=== PATIENT | male | born 1965 | race Two or more races ===

== ENCOUNTER 2024-02-20 20:55 | Inpatient (IN) | payer MEDICAID ==
[~2024-02-20] VITALS: Ht 177.8 cm; Wt 104.2 kg
[2024-02-20] MEDS ORDERED: OMEP1CAP PO (21:18)
[2024-02-20] MEDS ORDERED: METF-1203 PO (21:18)
[2024-02-20] MEDS ORDERED: PROP10TA10 PO (21:18)
[2024-02-20] MEDS ORDERED: SUCR1TAB PO (21:18)
[2024-02-20 21:28] LABS: BASOPHILS # (AUTO) 0.1 X10'3 (0-0.2); BASOPHILS % (AUTO) 1.2 % (0-1); EOSINOPHILS # (AUTO) 0.2 X10'3 (0-0.9); EOSINOPHILS % (AUTO) 3.1 % (0-6); HEMATOCRIT 25.3 % (42.0-52.0); HEMOGLOBIN 7.8 g/dl (14.0-17.9); LYMPHOCYTES % (AUTO) 17.1 % (21-51); MEAN CORPUSCULAR HEMOGLOBIN 22.7 PG (27.0-31.0); MEAN CORPUSCULAR HGB CONC 30.9 g/dL (33.0-36.5); MEAN CORPUSCULAR VOLUME 73.5 FL (78-98); MEAN PLATELET VOLUME 7.4 FL (7.4-10.4); MONOCYTES # (AUTO) 0.6 X10'3 (0-0.9); NEUTROPHILS # (AUTO) 3.9 X10'3 (1.8-7.7); NEUTROPHILS % (AUTO) 67.6 % (42-75); PLATELET COUNT 136 X10'3 (140-440); RED BLOOD COUNT 3.44 X10'6 (4.70-6.10); RED CELL DISTRIBUTION WIDTH 19.9 % (11.5-14.5); WHITE BLOOD COUNT 5.7 X10'3 (4.5-11.0)
[2024-02-20 21:41] LABS: ALBUMIN 2.7 G/DL (3.4-5.0); ANION GAP 4 (8-16); BILIRUBIN,TOTAL 3.4 MG/DL (0.1-1.0); BLOOD UREA NITROGEN 12 MG/DL (7-18); BUN/CREATININE RATIO 14.8 (10.0-20.0); CALCIUM 8.2 MG/DL (8.5-10.1); CHLORIDE 109 MMOL/L (99-107); CREATININE 0.81 MG/DL (0.60-1.10); GLUCOSE 107 MG/DL (70-104); POTASSIUM 4.4 MMOL/L (3.5-5.1); SODIUM 141 MMOL/L (135-145); TOTAL CARBON DIOXIDE 27.7 MMOL/L (24-32); TOTAL PROTEIN 6.7 G/DL (6.4-8.2); eCRCL 100 ML/MIN; eGFR > 90 ML/MIN
[2024-02-20 21:42] LABS: ALANINE AMINOTRANSFERASE 28 U/L (12-78); ALBUMIN/GLOBULIN RATIO 0.7 (1.1-1.5); ALKALINE PHOSPHATASE 185 IU/L (46-116); ASPARTATE AMINO TRANSFERASE 35 U/L (10-37); LIPASE 39 U/L (16-77)
[2024-02-20 22:06] LABS: BILIRUBIN,URINE NEGATIVE (Neg); CLARITY,URINE CLEAR (Clear); COLOR,URINE YELLOW (Yellow); GLUCOSE, URINE NEGATIVE (Neg); KETONES,URINE NEGATIVE (Neg); LEUKOCYTE ESTERASE ,URINE NEGATIVE (Neg); NITRITES, URINE NEGATIVE (Neg); OCCULT BLOOD,URINE NEGATIVE (Neg); PH,URINE 8.5 (4.8-8.0); PROTEIN,URINE NEGATIVE (Neg); UROBILINOGEN,URINE 0.2 E.U/dL (0.2-1.0)
[2024-02-20 22:08] LABS: UA COLLECTION TYPE URINAL
[2024-02-20 22:19] LABS: ANISOCYTOSIS 2+; HYPOCHROMASIA 1+; MICROCYTOSIS 1+; PLATELET ESTIMATE DECREASED; POLYCHROMASIA FEW; ROULEAUX 1+
[2024-02-20 23:30] LABS: APTT 24 SECONDS (22-32); PROTHROMBIN TIME 11.1 SECONDS (9.0-12.0)
[2024-02-20 23:39] LABS: BASOPHILS % (AUTO) 0.6 % (0-1); EOSINOPHILS # (AUTO) 0.2 X10'3 (0-0.9); EOSINOPHILS % (AUTO) 3.9 % (0-6); HEMATOCRIT 23.4 % (42.0-52.0); HEMOGLOBIN 7.3 g/dl (14.0-17.9); LYMPHOCYTES # (AUTO) 1.1 X10'3 (1.1-4.8); LYMPHOCYTES % (AUTO) 18.9 % (21-51); MEAN CORPUSCULAR HGB CONC 31.3 g/dL (33.0-36.5); MEAN CORPUSCULAR VOLUME 73.4 FL (78-98); MEAN PLATELET VOLUME 7.4 FL (7.4-10.4); MONOCYTES # (AUTO) 0.7 X10'3 (0-0.9); MONOCYTES % (AUTO) 12.8 % (2-12); NEUTROPHILS # (AUTO) 3.7 X10'3 (1.8-7.7); NEUTROPHILS % (AUTO) 63.8 % (42-75); PLATELET COUNT 125 X10'3 (140-440); RED BLOOD COUNT 3.18 X10'6 (4.70-6.10); RED CELL DISTRIBUTION WIDTH 19.9 % (11.5-14.5); WHITE BLOOD COUNT 5.8 X10'3 (4.5-11.0)
[2024-02-21] VITALS (8 sets, daily range): BP systolic 115–140; BP diastolic 63–77; PULSE 65–74; RESP 14–17; TEMP 98.3–98.8; O2SAT 93–99
[2024-02-21] MEDS ORDERED: mag hydrox/Alum hydrox/simeth 30ml oral suspension PO PRN (01:25)
[2024-02-21] MEDS ORDERED: magnesium hydroxide 30ml (MOM) UD suspension PO PRN (01:25)
[2024-02-21] MEDS ORDERED: potassium Cl 40MEQ/1/2NS 520ml 520 ML IV PRN (01:25)
[2024-02-21] MEDS ORDERED: acetaminophen 325mg tablet PO PRN (01:25)
[2024-02-21] MEDS ORDERED: potassium Cl 20 mEq SR tablet PO PRN ×2 (01:25)
[2024-02-21] MEDS ORDERED: ondansetron/PF 4mg/2ml inj IV PRN (01:25)
[2024-02-21] MEDS ORDERED: magnesium Cl slow-release 64mg tablet PO PRN (01:25)
[2024-02-21] MEDS ORDERED: magnesium sulf-water 2g/50mL 50 ML IV PRN (01:25)
[2024-02-21] MEDS ORDERED: magnesium sulf-water 4G/100mL 100 ML IV PRN (01:25)
[2024-02-21 02:24] LABS: HEMOGLOBIN A1C 6.2 % (4.5-6.2)
[2024-02-21] MEDS ORDERED: glucagon, human recombinant 1mg kit SUBCUT PRN (02:35)
[2024-02-21] MEDS ORDERED: DEXTROSE 15 GM of carb/4 tabs (each vial/BOTTLE has 4 tablets) PO PRN ×2 (02:35)
[2024-02-21] MEDS ORDERED: dextrose 50%-water 50ml dispensing syringe IV PRN ×2 (02:35)
[2024-02-21 02:40] LABS: BILIRUBIN,DIRECT 0.5 MG/DL (0-0.3); MAGNESIUM 1.7 MG/DL (1.5-2.4)
[2024-02-21] MEDS: pantoprazole 40MG/NS 100ML BAG 100 ML IV SCH (03:58)
[2024-02-21] MEDS: octreotide inj. 500 MCG in normal saline 100ml IV soln 97.5 ML IV SCH (03:58)
[2024-02-21] MEDS: INSULIN LISPRO 100 UNIT/ML INSULN.PEN MULTI-DOSE SQ SCH (07:00)
[2024-02-21] MEDS: K and/or MAG REPLACEMENT MC SCH (08:00)
[2024-02-21] MEDS: docusate sod 100mg capsule PO SCH (08:00)
[2024-02-21] MEDS ORDERED: octreotide inj. 1,250 MCG in normal saline 250ml IV soln 243.75 ML IV SCH (08:10)
[2024-02-21 08:21] LABS: HEMATOCRIT 25.3 % (42.0-52.0); HEMOGLOBIN 7.9 g/dl (14.0-17.9); MEAN CORPUSCULAR HGB CONC 31.1 g/dL (33.0-36.5); MEAN CORPUSCULAR VOLUME 73.9 FL (78-98); MEAN PLATELET VOLUME 7.8 FL (7.4-10.4); PLATELET COUNT 134 X10'3 (140-440); RED BLOOD COUNT 3.43 X10'6 (4.70-6.10); RED CELL DISTRIBUTION WIDTH 19.8 % (11.5-14.5); WHITE BLOOD COUNT 4.9 X10'3 (4.5-11.0)
[2024-02-21] MEDS: CefTRIAXone/D5W-Rocephin 1gm 50 ML IV SCH (12:57)
[2024-02-21 13:17] LABS: HEMATOCRIT 24.2 % (42.0-52.0); HEMOGLOBIN 7.6 g/dl (14.0-17.9); MEAN CORPUSCULAR HEMOGLOBIN 22.9 PG (27.0-31.0); MEAN CORPUSCULAR HGB CONC 31.4 g/dL (33.0-36.5); MEAN CORPUSCULAR VOLUME 72.8 FL (78-98); MEAN PLATELET VOLUME 7.7 FL (7.4-10.4); PLATELET COUNT 136 X10'3 (140-440); RED BLOOD COUNT 3.32 X10'6 (4.70-6.10); RED CELL DISTRIBUTION WIDTH 19.9 % (11.5-14.5); WHITE BLOOD COUNT 4.3 X10'3 (4.5-11.0)
[2024-02-21] MEDS ORDERED: MIDAZolam 1 MG/ML 5ML VIAL ONE (16:06)
[2024-02-21] MEDS ORDERED: LIDOcaine 2% Viscous 15ml cup ONE (16:06)
[2024-02-21] MEDS ORDERED: fentaNYL/PF 50MCG/1 ML 2ML syringe ONE (16:06)
[2024-02-21] MEDS ORDERED: flumazenil 0.1 mg/ml inj. 10mL vial IV ONE ×2 (16:11→16:13)
[2024-02-21] MEDS ORDERED: naloxone 0.4 mg/ml inj ONE (16:11)
[2024-02-22] MEDS: morphine 4 MG/ML inj SYRINge IV PRN (02:41)
[2024-02-22 06:10] LABS: BASOPHILS # (AUTO) 0.1 X10'3 (0-0.2); BASOPHILS % (AUTO) 1.4 % (0-1); EOSINOPHILS # (AUTO) 0.2 X10'3 (0-0.9); EOSINOPHILS % (AUTO) 6.3 % (0-6); HEMATOCRIT 24.2 % (42.0-52.0); HEMOGLOBIN 7.5 g/dl (14.0-17.9); LYMPHOCYTES % (AUTO) 25.1 % (21-51); MEAN CORPUSCULAR HEMOGLOBIN 22.7 PG (27.0-31.0); MEAN CORPUSCULAR HGB CONC 30.9 g/dL (33.0-36.5); MEAN CORPUSCULAR VOLUME 73.4 FL (78-98); MONOCYTES # (AUTO) 0.5 X10'3 (0-0.9); MONOCYTES % (AUTO) 11.9 % (2-12); NEUTROPHILS # (AUTO) 2.2 X10'3 (1.8-7.7); NEUTROPHILS % (AUTO) 55.3 % (42-75); PLATELET COUNT 127 X10'3 (140-440); RED BLOOD COUNT 3.29 X10'6 (4.70-6.10); WHITE BLOOD COUNT 3.9 X10'3 (4.5-11.0)
[2024-02-22 06:19] LABS: INR 1.1 INR; PROTHROMBIN TIME 11.5 SECONDS (9.0-12.0)
[2024-02-22 06:21] LABS: ALANINE AMINOTRANSFERASE 28 U/L (12-78); ALBUMIN 2.6 G/DL (3.4-5.0); ALBUMIN/GLOBULIN RATIO 0.7 (1.1-1.5); ALKALINE PHOSPHATASE 171 IU/L (46-116); ANION GAP 7 (8-16); ASPARTATE AMINO TRANSFERASE 35 U/L (10-37); BILIRUBIN,TOTAL 1.6 MG/DL (0.1-1.0); BLOOD UREA NITROGEN 9 MG/DL (7-18); BUN/CREATININE RATIO 10.7 (10.0-20.0); CALCIUM 7.9 MG/DL (8.5-10.1); CHLORIDE 108 MMOL/L (99-107); CREATININE 0.84 MG/DL (0.60-1.10); GLUCOSE 109 MG/DL (70-104); SODIUM 141 MMOL/L (135-145); TOTAL CARBON DIOXIDE 26.1 MMOL/L (24-32); TOTAL PROTEIN 6.5 G/DL (6.4-8.2); eCRCL 97 ML/MIN; eGFR > 90 ML/MIN
[2024-02-22] MEDS ORDERED: heparin, porcine 5000 units/ml vial SQ SCH (20:00)
[2024-02-22 21:23] VITALS: BP 120/72; PULSE 66; RESP 16; TEMP 97.9; O2SAT 96
[2024-02-23 03:20] VITALS: BP 128/74; PULSE 69; RESP 16; TEMP 98.3; O2SAT 97
[2024-02-23 05:35] LABS: BASOPHILS % (AUTO) 1.1 % (0-1); EOSINOPHILS # (AUTO) 0.2 X10'3 (0-0.9); EOSINOPHILS % (AUTO) 4.5 % (0-6); HEMATOCRIT 25.2 % (42.0-52.0); HEMOGLOBIN 7.7 g/dl (14.0-17.9); LYMPHOCYTES # (AUTO) 1.1 X10'3 (1.1-4.8); MEAN CORPUSCULAR HEMOGLOBIN 22.5 PG (27.0-31.0); MEAN CORPUSCULAR HGB CONC 30.5 g/dL (33.0-36.5); MEAN CORPUSCULAR VOLUME 73.8 FL (78-98); MEAN PLATELET VOLUME 7.5 FL (7.4-10.4); MONOCYTES # (AUTO) 0.5 X10'3 (0-0.9); MONOCYTES % (AUTO) 10.8 % (2-12); NEUTROPHILS # (AUTO) 2.4 X10'3 (1.8-7.7); NEUTROPHILS % (AUTO) 57.6 % (42-75); PLATELET COUNT 136 X10'3 (140-440); RED BLOOD COUNT 3.41 X10'6 (4.70-6.10); WHITE BLOOD COUNT 4.2 X10'3 (4.5-11.0)
[2024-02-23 05:46] LABS: INR 1.1 INR; PROTHROMBIN TIME 11.7 SECONDS (9.0-12.0)
[2024-02-23 05:54] LABS: ALANINE AMINOTRANSFERASE 25 U/L (12-78); ALBUMIN 2.6 G/DL (3.4-5.0); ALBUMIN/GLOBULIN RATIO 0.7 (1.1-1.5); ALKALINE PHOSPHATASE 161 IU/L (46-116); ANION GAP 7 (8-16); ASPARTATE AMINO TRANSFERASE 29 U/L (10-37); BILIRUBIN,TOTAL 1.5 MG/DL (0.1-1.0); BLOOD UREA NITROGEN 8 MG/DL (7-18); BUN/CREATININE RATIO 9.2 (10.0-20.0); CALCIUM 7.9 MG/DL (8.5-10.1); CHLORIDE 109 MMOL/L (99-107); CREATININE 0.87 MG/DL (0.60-1.10); GLUCOSE 116 MG/DL (70-104); POTASSIUM 3.7 MMOL/L (3.5-5.1); SODIUM 142 MMOL/L (135-145); TOTAL CARBON DIOXIDE 25.6 MMOL/L (24-32); TOTAL PROTEIN 6.6 G/DL (6.4-8.2); eCRCL 93 ML/MIN; eGFR 90 ML/MIN
[2024-02-23 06:00] VITALS: BP 112/65; PULSE 61; RESP 16; TEMP 97.4; O2SAT 94
[2024-02-23 10:00] VITALS: BP 121/75; PULSE 64; RESP 18; TEMP 98.5; O2SAT 97
[2024-02-23] MEDS ORDERED: PANT-47 PO (12:29)
[2024-02-23] MEDS ORDERED: sucralfate 1 gm tablet PO SCH (17:00)
[2024-02-23] MEDS ORDERED: metFORMIN 500mg tablet PO SCH (20:00)
[2024-02-23] MEDS ORDERED: propranolol 10mg tablet PO SCH (20:00)
== END 2024-02-23 16:30 | disposition home or self-care (01) ==
LOC: ER 20:56 → UNDOADMIN 02-21 01:33 → ED HOLD 02-21 01:33 → EDBEDREQ 02-21 02:24 → ED HOLD 02-21 03:00 → ORTHO 4S 02-21 03:00
PROVIDERS: ADMIT Student in an Organized Health Care Education/Training Program; ATTEND Family Medicine
PROC: 0DB78ZX Excision of Stomach, Pylorus, Via Natural or Artificial Opening Endoscopic, Diagnostic (ICD-10-PCS; principal; 2024-02-21)
PROC: 06L38CZ Occlusion of Esophageal Vein with Extraluminal Device, Via Natural or Artificial Opening Endoscopic (ICD-10-PCS; 2024-02-21)
DX: K74.60 Unspecified cirrhosis of liver (principal); U07.1 COVID-19; I85.11 Secondary esophageal varices with bleeding; E72.20 Disorder of urea cycle metabolism, unspecified; R18.8 Other ascites; D64.9 Anemia, unspecified; E11.9 Type 2 diabetes mellitus without complications; K31.89 Other diseases of stomach and duodenum; K80.20 Calculus of gallbladder without cholecystitis without obstruction; Z79.84 Long term (current) use of oral hypoglycemic drugs; Z79.899 Other long term (current) drug therapy
CPT/HCPCS: 36415; 43239; 43244; 76700; 80053; 81003; 82140; 82248; 82948; 83036; 83605; 83690; 83735; 84132; 84145; 85008; 85025; 85027; 85610; 85730; 86885; 86900; 86901; 87040; 87081; 93005; 99152; 99291; A4620; G0378; J0696; J1815; J2250; J2270; J2310; J2354; J2470; J3010; J3490; J7030

== ENCOUNTER 2024-05-14 16:05 | Inpatient (IN) | payer MEDICAID ==
[~2024-05-14] VITALS: Ht 165.1 cm; Wt 104.2 kg
[~2024-05-14 16:05] MED LIST: METF-1203 PO; PANT-47 PO; PROP10TA10 PO; SUCR1TAB PO
[2024-05-14 17:10] LABS: BASOPHILS # (AUTO) 0.1 X10'3 (0-0.2); BASOPHILS % (AUTO) 1.7 % (0-1); EOSINOPHILS # (AUTO) 0.1 X10'3 (0-0.9); LYMPHOCYTES % (AUTO) 31.3 % (21-51); MEAN CORPUSCULAR HEMOGLOBIN 19.9 PG (27.0-31.0); MEAN CORPUSCULAR HGB CONC 28.8 g/dL (33.0-36.5); MEAN CORPUSCULAR VOLUME 69.1 FL (78-98); MEAN PLATELET VOLUME 8.2 FL (7.4-10.4); MONOCYTES # (AUTO) 0.4 X10'3 (0-0.9); MONOCYTES % (AUTO) 12.3 % (2-12); NEUTROPHILS # (AUTO) 1.6 X10'3 (1.8-7.7); NEUTROPHILS % (AUTO) 50.7 % (42-75); PLATELET COUNT 123 X10'3 (140-440); RED BLOOD COUNT 2.82 X10'6 (4.70-6.10); RED CELL DISTRIBUTION WIDTH 20.2 % (11.5-14.5); WHITE BLOOD COUNT 3.1 X10'3 (4.5-11.0)
[2024-05-14 17:12] LABS: HEMATOCRIT 19.5 % (42.0-52.0); HEMOGLOBIN 5.6 g/dl (14.0-17.9)
[2024-05-14 17:25] LABS: ALANINE AMINOTRANSFERASE 26 U/L (12-78); ALBUMIN/GLOBULIN RATIO 0.8 (1.1-1.5); ALKALINE PHOSPHATASE 159 IU/L (46-116); ANION GAP 8 (8-16); ASPARTATE AMINO TRANSFERASE 26 U/L (10-37); BILIRUBIN,TOTAL 1.6 MG/DL (0.1-1.0); BLOOD UREA NITROGEN 7 MG/DL (7-18); BUN/CREATININE RATIO 8.6 (10.0-20.0); CALCIUM 8.1 MG/DL (8.5-10.1); CHLORIDE 110 MMOL/L (99-107); CREATININE 0.81 MG/DL (0.60-1.10); GLUCOSE 94 MG/DL (70-104); LIPASE 37 U/L (16-77); SODIUM 142 MMOL/L (135-145); TOTAL CARBON DIOXIDE 24.2 MMOL/L (24-32); eCRCL 84 ML/MIN; eGFR > 90 ML/MIN
[2024-05-14 17:28] LABS: ANISOCYTOSIS 3+; MICROCYTOSIS 2+; PLATELET ESTIMATE DECREASED
[2024-05-14 17:29] LABS: ACANTHOCYTES FEW; ELLIPTOCYTES FEW; HYPOCHROMASIA 3+; POLYCHROMASIA FEW; STOMATOCYTES FEW; TEAR DROP CELLS FEW
[2024-05-14] MEDS ORDERED: ondansetron/PF 4mg/2ml inj IV PRN (19:55)
[2024-05-14] MEDS ORDERED: potassium Cl 20 mEq SR tablet PO PRN ×2 (19:55)
[2024-05-14] MEDS ORDERED: magnesium sulf-water 2g/50mL 50 ML IV PRN (19:55)
[2024-05-14] MEDS ORDERED: magnesium sulf-water 4G/100mL 100 ML IV PRN (19:55)
[2024-05-14] MEDS ORDERED: potassium Cl 40MEQ/1/2NS 520ml 520 ML IV PRN (19:55)
[2024-05-14] MEDS ORDERED: magnesium Cl slow-release 64mg tablet PO PRN (19:55)
[2024-05-14] MEDS ORDERED: mag hydrox/Alum hydrox/simeth 30ml oral suspension PO PRN (19:55)
[2024-05-14] MEDS ORDERED: acetaminophen 325mg tablet PO PRN (19:55)
[2024-05-14] MEDS ORDERED: magnesium hydroxide 30ml (MOM) UD suspension PO PRN (19:55)
[2024-05-14] MEDS: docusate sod 100mg capsule PO SCH (20:00)
[2024-05-14] MEDS: K and/or MAG REPLACEMENT MC SCH (20:00)
[2024-05-14] MEDS ORDERED: dextrose 50%-water 50ml dispensing syringe IV PRN ×2 (20:05)
[2024-05-14] MEDS ORDERED: glucagon, human recombinant 1mg kit SUBCUT PRN (20:05)
[2024-05-14] MEDS ORDERED: DEXTROSE 15 GM of carb/4 tabs (each vial/BOTTLE has 4 tablets) PO PRN ×2 (20:05)
[2024-05-14 20:23] LABS: % IRON SATURATION 3 % (11-46); IRON 16 UG/DL (53-167); TOTAL IRON BINDING CAPACITY 458 UG/DL (259-388)
[2024-05-14 20:36] LABS: FERRITIN 6 NG/ML (26-388)
[2024-05-14] MEDS: INSULIN LISPRO 100 UNIT/ML INSULN.PEN MULTI-DOSE SQ SCH (21:00)
[2024-05-14] MEDS: insulin glargine (Lantus) pen - multi-dose SQ SCH (21:00)
[2024-05-14 21:15] VITALS: BP 124/65; PULSE 68; RESP 16; TEMP 98.6
[2024-05-14 21:26] LABS: MEAN CORPUSCULAR HEMOGLOBIN 19.7 PG (27.0-31.0); MEAN CORPUSCULAR HGB CONC 28.5 g/dL (33.0-36.5); MEAN CORPUSCULAR VOLUME 69.2 FL (78-98); MEAN PLATELET VOLUME 8.6 FL (7.4-10.4); PLATELET COUNT 121 X10'3 (140-440); RED BLOOD COUNT 2.71 X10'6 (4.70-6.10); RED CELL DISTRIBUTION WIDTH 20.3 % (11.5-14.5); WHITE BLOOD COUNT 3.3 X10'3 (4.5-11.0)
[2024-05-14 21:28] LABS: HEMATOCRIT 18.7 % (42.0-52.0); HEMOGLOBIN 5.3 g/dl (14.0-17.9)
[2024-05-14 21:30] VITALS: BP 128/61; PULSE 74; RESP 16; TEMP 98.8
[2024-05-14] MEDS: sucralfate 1 gm tablet PO SCH (21:31)
[2024-05-14] MEDS: pantoprazole 40MG/NS 100ML BAG 100 ML IV SCH (21:43)
[2024-05-14 21:45] VITALS: BP 128/64; PULSE 71; RESP 16; TEMP 98.8
[2024-05-14 23:55] VITALS: BP 123/68; PULSE 67; RESP 13; TEMP 97.5
[2024-05-14 23:59] VITALS: BP 120/67; PULSE 71; RESP 14; TEMP 97.5
[2024-05-15] VITALS (23 sets, daily range): BP systolic 110–160; BP diastolic 52–96; PULSE 59–68; RESP 11–19; TEMP 97.5–98.5; O2SAT 97–100
[2024-05-15] MEDS: pantoprazole 40MG/NS 100ML BAG 100 ML IV SCH (02:50)
[2024-05-15] MEDS ORDERED: acetaminophen 325mg tablet PO PRN (03:10)
[2024-05-15 05:57] LABS: BILIRUBIN,URINE NEGATIVE (Neg); CLARITY,URINE CLEAR (Clear); COLOR,URINE YELLOW (Yellow); GLUCOSE, URINE NEGATIVE (Neg); KETONES,URINE TRACE mg/dl (Neg); LEUKOCYTE ESTERASE ,URINE NEGATIVE (Neg); NITRITES, URINE NEGATIVE (Neg); OCCULT BLOOD,URINE NEGATIVE (Neg); PROTEIN,URINE NEGATIVE (Neg)
[2024-05-15 06:02] LABS: UA COLLECTION TYPE URINAL
[2024-05-15 08:00] LABS: EOSINOPHILS # (AUTO) 0.1 X10'3 (0-0.9); HEMATOCRIT 22.2 % (42.0-52.0); LYMPHOCYTES # (AUTO) 0.7 X10'3 (1.1-4.8); LYMPHOCYTES % (AUTO) 22.3 % (21-51); MEAN CORPUSCULAR HEMOGLOBIN 22.5 PG (27.0-31.0); MEAN CORPUSCULAR HGB CONC 30.9 g/dL (33.0-36.5); MEAN CORPUSCULAR VOLUME 72.7 FL (78-98); MEAN PLATELET VOLUME 8.2 FL (7.4-10.4); MONOCYTES # (AUTO) 0.3 X10'3 (0-0.9); MONOCYTES % (AUTO) 9.9 % (2-12); NEUTROPHILS % (AUTO) 63.8 % (42-75); PLATELET COUNT 108 X10'3 (140-440); RED BLOOD COUNT 3.05 X10'6 (4.70-6.10); WHITE BLOOD COUNT 3.1 X10'3 (4.5-11.0)
[2024-05-15] MEDS ORDERED: pantoprazole 40mg Tablet.DR PO SCH (08:00)
[2024-05-15 08:10] LABS: HEMOGLOBIN 6.9 g/dl (14.0-17.9)
[2024-05-15] MEDS: propranolol 10mg tablet PO SCH (08:34)
[2024-05-15 08:44] LABS: ALANINE AMINOTRANSFERASE 21 U/L (12-78); ALBUMIN 2.7 G/DL (3.4-5.0); ALBUMIN/GLOBULIN RATIO 0.7 (1.1-1.5); ALKALINE PHOSPHATASE 140 IU/L (46-116); ANION GAP 8 (8-16); ASPARTATE AMINO TRANSFERASE 31 U/L (10-37); BILIRUBIN,TOTAL 3.6 MG/DL (0.1-1.0); BLOOD UREA NITROGEN 6 MG/DL (7-18); BUN/CREATININE RATIO 7.6 (10.0-20.0); CALCIUM 7.7 MG/DL (8.5-10.1); CHLORIDE 107 MMOL/L (99-107); CREATININE 0.79 MG/DL (0.60-1.10); GLUCOSE 98 MG/DL (70-104); MAGNESIUM 1.7 MG/DL (1.5-2.4); POTASSIUM 3.9 MMOL/L (3.5-5.1); SODIUM 140 MMOL/L (135-145); TOTAL CARBON DIOXIDE 24.9 MMOL/L (24-32); TOTAL PROTEIN 6.4 G/DL (6.4-8.2); eCRCL 87 ML/MIN; eGFR > 90 ML/MIN
[2024-05-15] MEDS: INSULIN LISPRO 100 UNIT/ML INSULN.PEN MULTI-DOSE SQ SCH (09:00)
[2024-05-15] MEDS ORDERED: LIDOcaine 2% Viscous 15ml cup ONE (13:05)
[2024-05-15] MEDS ORDERED: diphenhydrAMINE 50 mg/ml inj ONE (13:27)
[2024-05-15] MEDS ORDERED: fentaNYL/PF 50MCG/1 ML 2ML syringe ONE (13:27)
[2024-05-15] MEDS ORDERED: MIDAZolam 1 MG/ML 5ML VIAL ONE (13:27)
[2024-05-15] MEDS ORDERED: simethicone 40mg/0.6ml oral drops 30ml ONE (13:50)
[2024-05-15 15:24] LABS: HEMATOCRIT 23.5 % (42.0-52.0); MEAN CORPUSCULAR HEMOGLOBIN 21.6 PG (27.0-31.0); MEAN CORPUSCULAR HGB CONC 29.7 g/dL (33.0-36.5); MEAN CORPUSCULAR VOLUME 72.7 FL (78-98); MEAN PLATELET VOLUME 8.3 FL (7.4-10.4); PLATELET COUNT 102 X10'3 (140-440); RED BLOOD COUNT 3.24 X10'6 (4.70-6.10); RED CELL DISTRIBUTION WIDTH 22.7 % (11.5-14.5); WHITE BLOOD COUNT 3.3 X10'3 (4.5-11.0)
[2024-05-15] MEDS: PEG 3350/Na sulf,bicarb,Cl/KCl oral sol 4 liter bottle PO ONE (17:00)
[2024-05-16] VITALS (18 sets, daily range): BP systolic 90–144; BP diastolic 51–79; PULSE 54–68; RESP 9–18; TEMP 97.6–98.8; O2SAT 96–99
[2024-05-16 04:59] LABS: OCCULT BLOOD STOOL NEGATIVE (Neg)
[2024-05-16 06:31] LABS: BASOPHILS # (AUTO) 0.1 X10'3 (0-0.2); BASOPHILS % (AUTO) 1.7 % (0-1); EOSINOPHILS # (AUTO) 0.2 X10'3 (0-0.9); EOSINOPHILS % (AUTO) 5.3 % (0-6); HEMATOCRIT 25.8 % (42.0-52.0); HEMOGLOBIN 8.1 g/dl (14.0-17.9); LYMPHOCYTES # (AUTO) 0.8 X10'3 (1.1-4.8); LYMPHOCYTES % (AUTO) 25.5 % (21-51); MEAN CORPUSCULAR HGB CONC 31.2 g/dL (33.0-36.5); MEAN CORPUSCULAR VOLUME 73.9 FL (78-98); MEAN PLATELET VOLUME 8.6 FL (7.4-10.4); MONOCYTES # (AUTO) 0.3 X10'3 (0-0.9); MONOCYTES % (AUTO) 11.4 % (2-12); NEUTROPHILS # (AUTO) 1.7 X10'3 (1.8-7.7); NEUTROPHILS % (AUTO) 56.1 % (42-75); PLATELET COUNT 106 X10'3 (140-440); RED CELL DISTRIBUTION WIDTH 23.5 % (11.5-14.5)
[2024-05-16 06:39] LABS: INR 1.2 INR; PROTHROMBIN TIME 12.5 SECONDS (9.0-12.0)
[2024-05-16 06:42] LABS: ALANINE AMINOTRANSFERASE 20 U/L (12-78); ALBUMIN 2.7 G/DL (3.4-5.0); ALBUMIN/GLOBULIN RATIO 0.7 (1.1-1.5); ALKALINE PHOSPHATASE 146 IU/L (46-116); ANION GAP 8 (8-16); ASPARTATE AMINO TRANSFERASE 26 U/L (10-37); BILIRUBIN,TOTAL 3.5 MG/DL (0.1-1.0); BLOOD UREA NITROGEN 6 MG/DL (7-18); BUN/CREATININE RATIO 7.8 (10.0-20.0); CALCIUM 8.3 MG/DL (8.5-10.1); CHLORIDE 109 MMOL/L (99-107); CREATININE 0.77 MG/DL (0.60-1.10); GLUCOSE 92 MG/DL (70-104); MAGNESIUM 1.8 MG/DL (1.5-2.4); POTASSIUM 3.7 MMOL/L (3.5-5.1); SODIUM 141 MMOL/L (135-145); TOTAL CARBON DIOXIDE 24.3 MMOL/L (24-32); TOTAL PROTEIN 6.4 G/DL (6.4-8.2); eCRCL 89 ML/MIN; eGFR > 90 ML/MIN
[2024-05-16 08:19] LABS: NUCLEATED RED BLOOD CELLS 1 /100WBC (0-0); TOTAL CELLS COUNTED 100
[2024-05-16 08:20] LABS: HYPOCHROMASIA 1+; MICROCYTOSIS 1+; PLATELET ESTIMATE DECREASED
[2024-05-16 08:21] LABS: SCHISTOCYTES FE W; STOMATOCYTES FEW
[2024-05-16] MEDS ORDERED: LIDOcaine 1%/PF 5ML 10 MG/ML VIAL ONE (12:35)
[2024-05-16] MEDS ORDERED: propofol inj 20 ML IV ONE ×2 (12:37→12:41)
[2024-05-17 01:39] VITALS: BP 102/59; PULSE 57; RESP 14; TEMP 98.2; O2SAT 97
[2024-05-17 05:23] LABS: HBSAG SCREEN Negative (Negative); HEPATITIS C VIRUS ANTIBODY Non Reactive (Non Reactive)
[2024-05-17 06:00] VITALS: BP 113/58; PULSE 61; RESP 13; TEMP 98.4; O2SAT 98
[2024-05-17 06:50] LABS: BASOPHILS % (AUTO) 1.1 % (0-1); EOSINOPHILS # (AUTO) 0.2 X10'3 (0-0.9); EOSINOPHILS % (AUTO) 5.2 % (0-6); HEMATOCRIT 25.6 % (42.0-52.0); HEMOGLOBIN 7.9 g/dl (14.0-17.9); LYMPHOCYTES # (AUTO) 0.8 X10'3 (1.1-4.8); MEAN CORPUSCULAR HEMOGLOBIN 23.3 PG (27.0-31.0); MEAN CORPUSCULAR HGB CONC 31.1 g/dL (33.0-36.5); MEAN CORPUSCULAR VOLUME 74.9 FL (78-98); MEAN PLATELET VOLUME 8.3 FL (7.4-10.4); MONOCYTES # (AUTO) 0.4 X10'3 (0-0.9); MONOCYTES % (AUTO) 12.6 % (2-12); NEUTROPHILS # (AUTO) 1.7 X10'3 (1.8-7.7); NEUTROPHILS % (AUTO) 55.1 % (42-75); PLATELET COUNT 101 X10'3 (140-440); RED BLOOD COUNT 3.41 X10'6 (4.70-6.10); RED CELL DISTRIBUTION WIDTH 23.6 % (11.5-14.5)
[2024-05-17 06:59] LABS: ALANINE AMINOTRANSFERASE 18 U/L (12-78); ALBUMIN 2.7 G/DL (3.4-5.0); ALBUMIN/GLOBULIN RATIO 0.7 (1.1-1.5); ALKALINE PHOSPHATASE 134 IU/L (46-116); ANION GAP 11 (8-16); ASPARTATE AMINO TRANSFERASE 21 U/L (10-37); BILIRUBIN,TOTAL 2.5 MG/DL (0.1-1.0); BLOOD UREA NITROGEN 5 MG/DL (7-18); BUN/CREATININE RATIO 6.6 (10.0-20.0); CHLORIDE 109 MMOL/L (99-107); CREATININE 0.76 MG/DL (0.60-1.10); GLUCOSE 96 MG/DL (70-104); MAGNESIUM 1.8 MG/DL (1.5-2.4); POTASSIUM 3.6 MMOL/L (3.5-5.1); SODIUM 144 MMOL/L (135-145); TOTAL CARBON DIOXIDE 23.8 MMOL/L (24-32); TOTAL PROTEIN 6.4 G/DL (6.4-8.2); eCRCL 90 ML/MIN; eGFR > 90 ML/MIN
[2024-05-17] MEDS ORDERED: FERR324T4 PO (08:14)
[2024-05-17 08:45] LABS: PLATELET ESTIMATE DECREASED; TOTAL CELLS COUNTED 100
[2024-05-17 08:46] LABS: ANISOCYTOSIS 3+; ELLIPTOCYTES FEW; HYPOCHROMASIA 1+; MICROCYTOSIS 1+
[2024-05-17 08:47] LABS: SCHISTOCYTES FEW
[2024-05-17] MEDS: pantoprazole 40mg Tablet.DR PO SCH (08:58)
[2024-05-17 11:43] LABS: HEMATOCRIT 26.3 % (42.0-52.0); HEMOGLOBIN 8.2 g/dl (14.0-17.9); MEAN CORPUSCULAR HEMOGLOBIN 23.2 PG (27.0-31.0); MEAN CORPUSCULAR VOLUME 74.9 FL (78-98); MEAN PLATELET VOLUME 8.4 FL (7.4-10.4); PLATELET COUNT 111 X10'3 (140-440); RED BLOOD COUNT 3.51 X10'6 (4.70-6.10); RED CELL DISTRIBUTION WIDTH 23.5 % (11.5-14.5); WHITE BLOOD COUNT 3.1 X10'3 (4.5-11.0)
== END 2024-05-17 12:08 | disposition home or self-care (01) | DRG 241 ==
LOC: ER 16:08 → ED HOLD 20:01 → EDBEDREQ 05-15 06:59 → ORTHO 4S 05-15 08:40
PROVIDERS: ADMIT Internal Medicine Critical Care Medicine; ATTEND Internal Medicine
PROC: 30233N1 Transfusion of Nonautologous Red Blood Cells into Peripheral Vein, Percutaneous Approach (ICD-10-PCS; 2024-05-14)
PROC: 0DB68ZX Excision of Stomach, Via Natural or Artificial Opening Endoscopic, Diagnostic (ICD-10-PCS; principal; 2024-05-15)
PROC: 0DBK8ZZ Excision of Ascending Colon, Via Natural or Artificial Opening Endoscopic (ICD-10-PCS; 2024-05-16)
PROC: 0DBN8ZZ Excision of Sigmoid Colon, Via Natural or Artificial Opening Endoscopic (ICD-10-PCS; 2024-05-16)
DX: K29.71 Gastritis, unspecified, with bleeding (principal); D61.818 Other pancytopenia; I85.10 Secondary esophageal varices without bleeding; K76.6 Portal hypertension; D50.0 Iron deficiency anemia secondary to blood loss (chronic); E11.9 Type 2 diabetes mellitus without complications; D12.2 Benign neoplasm of ascending colon; D12.5 Benign neoplasm of sigmoid colon; K62.89 Other specified diseases of anus and rectum; E66.01 Morbid (severe) obesity due to excess calories; K64.8 Other hemorrhoids; F10.10 Alcohol abuse, uncomplicated; K31.89 Other diseases of stomach and duodenum; K74.60 Unspecified cirrhosis of liver; K44.9 Diaphragmatic hernia without obstruction or gangrene; Z83.3 Family history of diabetes mellitus; Z68.38 Body mass index [BMI] 38.0-38.9, adult; Z79.84 Long term (current) use of oral hypoglycemic drugs; Z79.899 Other long term (current) drug therapy
CPT/HCPCS: 36415; 36430; 43239; 45385; 80053; 81003; 82272; 82607; 82728; 82948; 83540; 83550; 83690; 83735; 84466; 85007; 85008; 85025; 85027; 85610; 86803; 86885; 86900; 86901; 86920; 87081; 87340; 87522; 97116; 97161; 97530; 99152; 99291; A4620; C1889; G0378; J1200; J1815; J2250; J2470; J2704; J3010; J3490; J7030; J7040; P9016